=== PATIENT | female | born 1965 | race Caucasian/White ===

== ENCOUNTER 2021-05-10 12:07 | Emergency (ER) | payer OTHER, SELFPAY ==
--- NOTE | 2021-05-10 12:21 | XR_ITS ---
PROCEDURE INFORMATION: Exam: XR Left Knee Exam date and time: 05/10/2021 12:21 PM Age: 56 years old Clinical indication: Patient HX: Left knee pain, PT slipped and fell; Additional info: Pain from fall TECHNIQUE: Imaging protocol: XR Left knee. Views: 3 views. COMPARISON: No relevant prior studies available. FINDINGS: Bones/joints: Linear sclerosis within the distal femoral diaphysis may represent an old bone infarction or sequelae of old injury. Old appearing fracture of the lateral femoral condyle best seen on the oblique view. There is an old hardware tunnel within the distal femur. No joint effusion. No acute fracture or traumatic malalignment. IMPRESSION: No acute osseous abnormality. Old appearing lateral femoral condylar fracture.
[2021-05-10 12:41] VITALS: BP 122/70; PULSE 79; RESP 14; TEMP 36.5; O2SAT 97; BMI 31.8
--- NOTE | 2021-05-10 12:58 | HMH.EDUTC ---
[facility] [place] Clinical Impression: Fall Qualifiers: Encounter type: initial encounter Qualified Code(s): W19.XXXA - Unspecified fall, initial encounter Left knee pain Qualifiers: Chronicity: acute Qualified Code(s): M25.562 - Pain in left knee Left knee sprain Qualifiers: Encounter type: initial encounter Involved ligament of knee: unspecified ligament Qualified Code(s): S83.92XA - Sprain of unspecified site of left knee, initial encounter Disposition: Home, Self-Care Condition on Discharge: Good Instructions: DI for Knee Sprain Referrals: Cheko Tipton MD [Primary Care Provider] - Medical Decision Making - Medical Records Medical records reviewed: No: I reviewed the patient's medical records. - Arnold Inquiry Pt receiving controlled substance: No Vital Signs: 05/10/21 12:41 05/10/21 13:31 Temperature 97.7 F 98.2 F Temperature Source Oral Pulse Rate 74 Pulse Rate [Right] 79 Respiratory Rate 14 16 Blood Pressure 124/78 Blood Pressure [Right Arm] 122/70 Blood Pressure Mean [Right Arm] 87 Blood Pressure Source [Right Arm] Automatic Cuff Blood Pressure Position [Right Arm] Sitting 02 Sat by Pulse Oximetry 97 - Radiology Data #1 Image(s): Knee Image Reviewed: Yes I reviewed the patient's radiology image, Yes I have reviewed radiologist's interpretation Preliminary Findings: Normal/NAD PROCEDURE INFORMATION: Exam: XR Left Knee Exam date and time: 05/10/2021 12:21 PM Age: 56 years old Clinical indication: Patient HX: Left knee pain, PT slipped and fell; Additional info: Pain from fall TECHNIQUE: Imaging protocol: XR Left knee. Views: 3 views. COMPARISON: No relevant prior studies available. FINDINGS: Bones/joints: Linear sclerosis within the distal femoral diaphysis may represent an old bone infarction or sequelae of old injury. Old appearing fracture of the lateral femoral condyle best seen on the oblique view. There is an old hardware tunnel within the distal femur. No joint effusion. No acute fracture or traumatic malalignment. IMPRESSION: No acute osseous abnormality. Old appearing lateral femoral condylar fracture. [facility] – [place] HPI - General Stated complaint: ao 05/09 19:30 fall lft knee pain Time Seen by Provider: 05/10/21 12:58 Mode of Arrival: Ambulatory Source of Information: Patient Limitations: No Limitations Description of Symptoms (Recalled from Triage Doc. by RN): pt states she fell and hurt her L knee HEENT Symptoms (Recalled from RN notes): No Resp Symptoms (Recalled from RN notes): No Skin Symptoms (Recalled from RN notes): No MS Symptoms (Recalled from RN notes): Yes (L knee) Functional Status (Recalled from RN notes): na - History of Present Illness Provider Complaint: She states that she slipped on wet concrete beside her pool yesterday. When she did this she fell. She has had left knee pain since then. She states that walking and bearing weight on the knee makes it worse. Nothing has really helped except resting it and staying off of it. - Related Data Allergies Allergy/AdvReac Type Severity Reaction Status Date / Time No Known Allergies Allergy Verified 05/10/21 13:28 - Worker's Comp Is this a Worker's Comp case?: No H History - Hepatitis A Screen Drug use history?: No High risk sexual behaviors?: No History of sexually transmitted infection?: No Currently employed?: No Childcare worker?: No Do you have indoor plumbing?: Yes Do you have electricity?: Yes Attestation statement:: This patient has been screened for Hepatitis A risk factors. I have reviewed the patient's past medical history: Yes ROS Obtained: Yes All systems reviewed & no additional complaints - Constitutional Constitutional: Denies chills, Denies fever(s) - Musculoskeletal Musculoskeletal: Reports as per HPI - Integumentary/Breasts Skin/Breast: Reports as per HPI - Ne
[2021-05-10 13:31] VITALS: BP 124/78; PULSE 74; RESP 16; TEMP 36.8
== END 2021-05-10 14:03 | disposition home or self-care (01) ==
PROVIDERS: Emergency Provider Nurse Practitioner Family; PCP Family Medicine
DX: S83.92XA Sprain of unspecified site of left knee, initial encounter (principal); W01.0XXA Fall on same level from slipping, tripping and stumbling without subsequent striking against object, initial encounter; Y93.11 Activity, swimming; Y92.016 Swimming-pool in single-family (private) house or garden as the place of occurrence of the external cause
CPT/HCPCS: 29505; 73562; 99202; G0463